=== PATIENT | male | born 1965 | race African-American/Black ===

== ENCOUNTER 2018-06-09 09:16 | Day surgery (SDC) | payer MEDICAID ==
[~2018-06-09] VITALS: Ht 188 cm; Wt 90.7 kg
[2018-06-09] MEDS ORDERED: FERR140T2 PO (10:44)
[2018-06-09] MEDS ORDERED: HYDR-4001 PO (10:44)
[2018-06-09] MEDS ORDERED: TH50 PO (10:44)
[2018-06-09] MEDS ORDERED: BENZ1TAB7 PO (10:44)
[2018-06-09] MEDS ORDERED: LACTATED RINGERS 1,000 ML IV SCH (11:00)
[2018-06-09] MEDS ORDERED: FENTANYL CITRATE/PF 50MCG/ML 2ML VIAL ONE (11:31)
[2018-06-09] MEDS ORDERED: MIDAZOLAM HCL 2 MG/2 ML VIAL ONE (11:32)
[2018-06-09] MEDS ORDERED: PROPOFOL 200MG/20ML VIAL IV ONE (11:32)
[2018-06-09] MEDS ORDERED: DIPHENHYDRAMINE 50MG/ML VIAL ONE (11:32)
[2018-06-09] MEDS ORDERED: LIDOCAINE HCL 1% 20ML VIAL (Pyxis) INJ ONE (11:32)
== END 2018-06-09 15:30 | disposition home or self-care (01) ==
LOC: OR 09:16
PROVIDERS: ATTEND Internal Medicine Gastroenterology
DX: Z12.11 Encounter for screening for malignant neoplasm of colon (principal); D12.4 Benign neoplasm of descending colon; F41.9 Anxiety disorder, unspecified; D64.9 Anemia, unspecified; Z87.891 Personal history of nicotine dependence; Z96.651 Presence of right artificial knee joint
CPT/HCPCS: 45380; 88305; 93005; J1200; J2250; J2704; J3010; J3490